=== PATIENT | female | born 1945 | race African-American/Black ===

== ENCOUNTER 2018-09-08 15:59 | Observation (INO) ==
--- NOTE | 2018-09-08 16:34 | ED ---
HPI General Chief Complaint: Altered Mental Status Stated Complaint: AMS Time Seen by Provider: 09/08/18 16:05 Source: EMS and old records reviewed Mode of arrival: EMS Limitations: altered mental status History of Present Illness HPI narrative: 73-year-old female patient from long-term presents to the ER today brought in by EMS because she was found unresponsive, GCS 4 at the long-term. Patient has history of seizures in the past, however no seizure activity was seen today. She slowly recovered to a GCS of 5 while on the ambulance. She did have an episode of small amount of vomiting prior to ambulance arrival. They state that she is breathing on her own normally. Vital signs are stable. She does not have any apparent injuries. Modifying Factors: None Associated Signs & Symptoms: Altered mental status Risk Factors: Elderly, seizure history Related Data Home Medications Medication Instructions Recorded Confirmed acetaminophen 500 mg PO Q6H PRN 09/08/18 09/08/18 aspirin 81 mg PO DAILY 09/08/18 09/08/18 atorvastatin 40 mg PO HS 09/08/18 09/08/18 bisacodyl [Dulcolax (bisacodyl)] 10 mg [place] DAILY PRN 09/08/18 09/08/18 carbamazepine 500 mg PO TID 09/08/18 09/08/18 clonidine HCl 0.1 mg PO BID 09/08/18 09/08/18 cyanocobalamin (vitamin B-12) 2,500 mcg SUBLINGUAL DAILY 09/08/18 09/08/18 [Vitamin B-12] diltiazem HCl 180 mg PO HS 09/08/18 09/08/18 divalproex 500 mg PO EVERY OTHER DAY 09/08/18 09/08/18 donepezil [Aricept] 15 mg PO HS 09/08/18 09/08/18 ferrous sulfate 325 mg PO TID 09/08/18 09/08/18 fluticasone 2 spray INTRANASAL DAILY 09/08/18 09/08/18 folic acid 1 mg PO DAILY 09/08/18 09/08/18 ibuprofen 800 mg PO TID 09/08/18 09/08/18 labetalol 200 mg PO BID 09/08/18 09/08/18 levothyroxine 25 mcg PO DAILY 09/08/18 09/08/18 lorazepam 0.05 mg/kg IM DAILY PRN 09/08/18 09/08/18 magnesium citrate [Citroma] 30 ml PO DAILY PRN 09/08/18 09/08/18 megestrol 400 mg PO DAILY 09/08/18 09/08/18 mirtazapine 7.5 mg PO DAILY 09/08/18 09/08/18 mirtazapine [Remeron] 15 mg PO DAILY 09/08/18 09/08/18 omeprazole 20 mg PO DAILY PRN 09/08/18 09/08/18 phenytoin sodium extended 100 mg PO TID 09/08/18 09/08/18 sennosides-docusate sodium 1 tab PO BID PRN 09/08/18 09/08/18 spironolactone 50 mg PO DAILY 09/08/18 09/08/18 ticagrelor [Brilinta] 90 mg PO BID 09/08/18 09/08/18 valsartan 80 mg PO DAILY 09/08/18 09/08/18 Allergies Allergy/AdvReac Type Severity Reaction Status Date / Time amlodipine [From [facility]] Allergy Rash Verified 09/08/18 16:13 Calcium Channel Blocking Allergy Rash Verified 09/08/18 16:13 Agents-Dih Review of Systems ROS Unobtainable ROS Unobtainable: unobtainable due to mental status PMFSH Medical History Medical History Atherosclerotic heart disease (Acute) Candidiasis (Acute) Chronic kidney disease (Acute) Constipation (Acute) Epilepsy (Acute) GERD (gastroesophageal reflux disease) (Acute) Status epilepticus (Acute) Surgical History Surgical History H/O kidney removal (Acute) Family History Family History Other Family history unknown Social History Social History Substance History: Unable to Obtain Second Hand Smoke Exposure: No Smoking Status: Unknown if ever smoked How Often Do You Have a Drink Containing Alcohol: Unable to Obtain Immunization History Tetanus Immunization: Unable to Assess Exam Narrative Exam Narrative: GENERAL: Well-developed elderly female patient currently in moderate distress, lethargic, disoriented, unable to give me any further history. SKIN: Focused skin assessment warm/dry. HEAD: Atraumatic. Normocephalic. EYES: Pupils, small, equal and round. No scleral icterus. No injection or drainage. ENT: No nasal bleeding or discharge. Mucous membranes pink and moist. NECK: Trachea midline. No JVD. CARDIOVASCULAR: Regular rate and rhythm. No murmur appreciated. RESPIRATORY: No accessory muscle use. Clear to auscultation. Breath sounds equal bilaterally. GASTROINTESTINAL: Abdomen soft, non-tender, nondistended. Hepatic and splenic margins not palpable. MUSCULOSKELETAL: No obvious deformities. No clubbing. No cyanosis. No edema. NEUROLOGICAL: Lethargic. Disoriented and unable to follow commands. PSYCHIATRIC: Unable to assess. Course Initial Documented Vital Signs Temperature 98.1 F 09/08/18 16:01 Pulse Rate 52 L 09/08/18 16:01 Respiratory Rate 16 09/08/18 16:01 Blood Pressure 183/74 H 09/08/18 16:01 Pulse Oximetry 99 09/08/18 16:01 Last Documented Vital Signs Temperature 97.7 F 09/09/18 15:37 Pulse Rate 71 09/09/18 15:37 Respiratory Rate 16 09/09/18 15:37 Blood Pressure 123/69 09/09/18 12:35 Pulse Oximetry 95 09/09/18 15:51 Medical Decision Making MDM Narrative Medical decision making narrative: CT the brain did not show any signs of acute intracranial processes. She was observed for 3 hours in the ER and is still fairly lethargic although more arousable now. At this point, I have discussed the case with Dr. Ibrahim who is the hospitalist on-call for admission for observation. However, it is recommended by her that we observe the patient for an additional 3 hours and if still not out of post ictal state, still disoriented, can be admitted at that time. After period of observation, patient was still poorly responsive and case had been discussed with Dr. Ibrahim for admission. Medical Screen Exam Complete: Yes Emergency Medical Condition: Yes Differential Diagnosis Differential Diagnosis: Seizures/post ictal versus acute intracranial processes versus electrolyte abnormalities Lab Data Result diagrams: 09/09/18 13:28 09/09/18 13:28 Lab Results 09/08/18 09/08/18 09/08/18 Range/Units 16:08 16:20 16:30 WBC 7.1 (4.0-11.0) th/mm3 RBC 2.87 L (4.00-5.30) mil/mm3 Hgb 10.1 L (11.6-15.3) gm/dL Hct 29.1 L (35.0-46.0) % MCV 101.2 H (80.0-100.0) fL MCH 35.1 H (27.0-34.0) pg MCHC 34.7 (32.0-36.0) % RDW 14.6 (11.6-17.2) % Plt Count 221 (150-450) th/mm3 MPV 8.8 (7.0-11.0) fL Neut % (Auto) 75.5 H (16.0-70.0) % Lymph % (Auto) 15.4 (9.0-44.0) % [place] % (Auto) 7.8 (0.0-8.0) % Eos % (Auto) 1.0 (0.0-4.0) % Baso % (Auto) 0.3 (0.0-2.0) % Neut # (Auto) 5.4 (1.8-7.7) th/mm3 Lymph # (Auto) 1.1 (1.0-4.8) th/mm3 [place] # (Auto) 0.6 (0.0-0.9) th/mm3 Eos # (Auto) 0.1 (0.0-0.4) th/mm3 Baso # (Auto) 0.0 (0.0-0.2) th/mm3 WBC Differential . Differential Comment Auto diff final PT (9.8-11.6) sec INR Ratio APTT (23.4-31.7) sec Sodium 139 (136-145) meq/L Potassium 5.0 (3.5-5.1) meq/L Chloride 115 H (98-107) meq/L Carbon Dioxide 16.8 L (21.0-32.0) meq/L Anion Gap 7 (5-15) meq/L BUN 40 H (7-18) mg/dL Creatinine 1.28 H (0.50-1.00) mg/dL Estimated GFR 41 L (>89) mL/min POC Glucose 117 H (68-110) mg/dl Random Glucose 116 H (74-106) mg/dL Calcium 9.4 (8.5-10.1) mg/dL Magnesium 2.1 (1.5-2.5) mg/dL Total Bilirubin 0.3 (0.2-1.0) mg/dL AST 10 L (15-37) U/L ALT 18 (10-53) U/L Alkaline Phosphatase 94 (45-117) U/L Troponin I 0.04 (0.02-0.05) ng/mL Total Protein 7.8 D (6.4-8.2) g/dL Albumin 3.2 L (3.4-5.0) g/dL Urine Color (Yellw/Straw) Urine Clarity (Clear) Urine pH (5.0-8.5) Ur Specific Nixon (1.002-1.035) Urine Protein (Neg-Trace) mg/dL Urine Glucose (UA) (Negative) mg/dL Urine Ketones (Negative) mg/dL Urine Occult Blood (Negative) Urine Nitrate (Negative) Urine Bilirubin (Negative) Urine Urobilinogen (Less than 2) mg/dL Ur Leukocyte Esterase (Negative) Urine RBC (0-3) /hpf Urine WBC (0-5) /hpf Urine Mucus (Occasional) /lpf Micro UA Comment Ur Microscopic Review Urine Culture Comments Phenytoin 1.8 L (10.0-20.0) mcg/mL 09/08/18 09/08/18 09/09/18 Range/Units 16:30 18:07 13:28 WBC 5.4 (4.0-11.0) th/mm3 RBC 2.92 L (4.00-5.30) mil/mm3 Hgb 10.2 L (11.6-15.3) gm/dL Hct 29.7 L (35.0-46.0) % MCV 101.4 H (80.0-100.0) fL MCH 34.7 H (27.0-34.0) pg MCHC 34.3 (32.0-36.0) % RDW 14.7 (11.6-17.2) % Plt Count 205 (150-450) th/mm3 MPV 8.9 (7.0-11.0) fL Neut % (Auto) 70.7 H (16.0-70.0) % Lymph % (Auto) 15.8 (9.0-44.0) % [place] % (Auto) 12.4 H (0.0-8.0) % Eos % (Auto) 0.7 (0.0-4.0) % Baso % (Auto) 0.4 (0.0-2.0) % Neut # (Auto) 3.8 (1.8-7.7) th/mm3 Lymph # (Auto) 0.9 L (1.0-4.8) th/mm3 [place] # (Auto) 0.7 (0.0-0.9) th/mm3 Eos # (Auto) 0.0 (0.0-0.4) th/mm3 Baso # (Auto) 0.0 (0.0-0.2) th/mm3 WBC Differential . Differential Comment Auto diff final PT 10.3 (9.8-11.6) sec INR 1.0 Ratio APTT 21.7 L (23.4-31.7) sec Sodium (136-145) meq/L Potassium (3.5-5.1) meq/L Chloride (98-107) meq/L Carbon Dioxide (21.0-32.0) meq/L Anion Gap (5-15) meq/L BUN (7-18) mg/dL Creatinine (0.50-1.00) mg/dL Estimated GFR (>89) mL/min POC Glucose (68-110) mg/dl Random Glucose (74-106) mg/dL Calcium (8.5-10.1) mg/dL Magnesium (1.5-2.5) mg/dL Total Bilirubin (0.2-1.0) mg/dL AST (15-37) U/L ALT (10-53) U/L Alkaline Phosphatase (45-117) U/L Troponin I (0.02-0.05) ng/mL Total Protein (6.4-8.2) g/dL Albumin (3.4-5.0) g/dL Urine Color Yellow (Yellw/Straw) Urine Clarity Clear (Clear) Urine pH 5.0 (5.0-8.5) Ur Specific Nixon 1.016 (1.002-1.035) Urine Protein Negative (Neg-Trace) mg/dL Urine Glucose (UA) Negative (Negative) mg/dL Urine Ketones Trace H (Negative) mg/dL Urine Occult Blood Negative (Negative) Urine Nitrate Negative (Negative) Urine Bilirubin Negative (Negative) Urine Urobilinogen Less than 2 (Less than 2) mg/dL Ur Leukocyte Esterase Negative (Negative) Urine RBC 2 (0-3) /hpf Urine WBC 1 (0-5) /hpf Urine Mucus Few H (Occasional) /lpf Micro UA Comment Cath-culture not ind Ur Microscopic Review Not Reportable Urine Culture Comments Cath-cult not ind Phenytoin (10.0-20.0) mcg/mL 09/09/18 Range/Units 13:28 WBC (4.0-11.0) th/mm3 RBC (4.00-5.30) mil/mm3 Hgb (11.6-15.3) gm/dL Hct (35.0-46.0) % MCV (80.0-100.0) fL MCH (27.0-34.0) pg MCHC (32.0-36.0) % RDW (11.6-17.2) % Plt Count (150-450) th/mm3 MPV (7.0-11.0) fL Neut % (Auto) (16.0-70.0) % Lymph % (Auto) (9.0-44.0) % [place] % (Auto) (0.0-8.0) % Eos % (Auto) (0.0-4.0) % Baso % (Auto) (0.0-2.0) % Neut # (Auto) (1.8-7.7) th/mm3 Lymph # (Auto) (1.0-4.8) th/mm3 [place] # (Auto) (0.0-0.9) th/mm3 Eos # (Auto) (0.0-0.4) th/mm3 Baso # (Auto) (0.0-0.2) th/mm3 WBC Differential Differential Comment PT (9.8-11.6) sec INR Ratio APTT (23.4-31.7) sec Sodium 139 (136-145) meq/L Potassium 4.1 D (3.5-5.1) meq/L Chloride 113 H (98-107) meq/L Carbon Dioxide 19.8 L (21.0-32.0) meq/L Anion Gap 6 (5-15) meq/L BUN 30 H (7-18) mg/dL Creatinine 1.18 H (0.50-1.00) mg/dL Estimated GFR 55 L (>89) mL/min POC Glucose (68-110) mg/dl Random Glucose 132 H (74-106) mg/dL Calcium 9.7 (8.5-10.1) mg/dL Magnesium (1.5-2.5) mg/dL Total Bilirubin (0.2-1.0) mg/dL AST (15-37) U/L ALT (10-53) U/L Alkaline Phosphatase (45-117) U/L Troponin I (0.02-0.05) ng/mL Total Protein (6.4-8.2) g/dL Albumin (3.4-5.0) g/dL Urine Color (Yellw/Straw) Urine Clarity (Clear) Urine pH (5.0-8.5) Ur Specific Nixon (1.002-1.035) Urine Protein (Neg-Trace) mg/dL Urine Glucose (UA) (Negative) mg/dL Urine Ketones (Negative) mg/dL Urine Occult Blood (Negative) Urine Nitrate (Negative) Urine Bilirubin (Negative) Urine Urobilinogen (Less than 2) mg/dL Ur Leukocyte Esterase (Negative) Urine RBC (0-3) /hpf Urine WBC (0-5) /hpf Urine Mucus (Occasional) /lpf Micro UA Comment Ur Microscopic Review Urine Culture Comments Phenytoin (10.0-20.0) mcg/mL Imaging Data Radiologist's impression: Chest X-Ray 09/08/18 16:13 CONCLUSION: No acute cardiopulmonary disease. There is no evidence of pneumonia. Head CT 09/08/18 16:13 CONCLUSION: 1. Diffuse cerebral atrophy. 2. Moderate to severe periventricular and subcortical white matter small vessel ischemic changes are noted bilaterally. 3. No acute infarct, acute hemorrhage, midline shift or extra-axial fluid collections. . Discharge Plan Discharge Disposition Patient Disposition: ED Admit(ED Internal Use Only) Discharge Condition Condition: Good Discharge Order Discharge Orders: ED Use Only Admit Order (Routine); Ordered 09/08/18 Ordered By: Jose Juan Quezada Discharge Details Anticipated Discharge Date: 09/08/18 Diagnosis: Altered mental status Physicians Team ED Provider: Harshil Pinon Primary Care Provider: Desmond Osman Attending Provider: Nguyen Hoskins Other Providers: [facility],Agency Discharge Interventions Interventions: ED Discharge Assessment Last Done: 09/09/18 01:21 Status ED Status: Left Department Discharge Information Discharge Date/Time: 09/09/18 01:21
[2018-09-08 16:57] LABS: Baso % (Auto) 0.3 % (0.0-2.0); Eos # (Auto) 0.1 th/mm3 (0.0-0.4); Hematocrit 29.1 % (35.0-46.0); Hemoglobin 10.1 gm/dL (11.6-15.3); Lymph # (Auto) 1.1 th/mm3 (1.0-4.8); Lymph % (Auto) 15.4 % (9.0-44.0); Mean Corpuscular HGB Conc 34.7 % (32.0-36.0); Mean Corpuscular Hemoglobin 35.1 pg (27.0-34.0); Mean Corpuscular Volume 101.2 fL (80.0-100.0); Mean Platelet Volume 8.8 fL (7.0-11.0); Mono # (Auto) 0.6 th/mm3 (0.0-0.9); Mono % (Auto) 7.8 % (0.0-8.0); Neut # (Auto) 5.4 th/mm3 (1.8-7.7); Neut % (Auto) 75.5 % (16.0-70.0); Platelet Count 221 th/mm3 (150-450); Red Blood Count 2.87 mil/mm3 (4.00-5.30); Red Cell Distribution Width 14.6 % (11.6-17.2); White Blood Count 7.1 th/mm3 (4.0-11.0)
[2018-09-08] MEDS ORDERED: Sodium Chlor 0.9% Inj 500 ML IV.SIG SCH (17:00)
[2018-09-08 17:02] LABS: Activated Partial Thrombo Time 21.7 sec (23.4-31.7); Prothrombin Time 10.3 sec (9.8-11.6)
--- NOTE | 2018-09-08 17:02 | XR ---
EXAM DATE: 09/08/2018 4:57 PM EST AGE/SEX: 73 years / Female INDICATIONS: Shortness of breath. Evaluate for pneumonia. Patient non-responsive. CLINICAL DATA: This is the patient's initial encounter. Patient reports that signs and symptoms have been present for 1 day and indicates a pain score of Nonresponsive. MEDICAL/SURGICAL HISTORY: Non-responsive. Non-responsive. COMPARISON: No prior exams available for comparison. FINDINGS: A single AP view of the chest demonstrates the lungs to be symmetrically aerated without evidence of mass, infiltrate or effusion. The cardiomediastinal contours are unremarkable. Osseous structures a re intact. CONCLUSION: No acute cardiopulmonary disease. There is no evidence of pneumonia. Electronically signed by: Giovanny Tracy MD Board Certified Radiologist 09/08/2018 5:00 PM EST
--- NOTE | 2018-09-08 17:09 | CT ---
EXAM DATE: 09/08/2018 5:05 PM EST AGE/SEX: 73 years / Female INDICATIONS: Altered mental status. CLINICAL DATA: This is the patient's initial encounter. Patient reports that signs and symptoms have been present for 1 day and indicates a pain score of Nonresponsive. MEDICAL/SURGICAL HISTORY: Chronic renal insufficiency. . nephrectomy RADIATION DOSE: 56.35 CTDI (mGy) COMPARISON: No prior exams available for comparison. TECHNIQUE: CT of the head without contrast. Using automated exposure control and adjustment of the mA and/or kV according to patient size, radiation dose was kept as low as reasonably achievable to ob tain optimal diagnostic quality images. DICOM format image data is available electronically for revi ew and comparison. FINDINGS: Cerebrum: Diffuse cerebral atrophy is noted. Moderate to severe periventricular and subcortical whit e matter small vessel ischemic changes are noted bilaterally. There is no acute infarct, acute hemorr samia, midline shift or extra-axial fluid collections. Posterior Fossa: The cerebellum and brainstem are intact. The 4th ventricle is midline. The cerebe llopontine angle is unremarkable. Extracranial: The visualized portion of the orbits is intact. Skull: The calvaria is intact. No evidence of skull fracture. CONCLUSION: 1. Diffuse cerebral atrophy. 2. Moderate to severe periventricular and subcortical white matter small vessel ischemic changes are noted bilaterally. 3. No acute infarct, acute hemorrhage, midline shift or extra-axial fluid collections. . Electronically signed by: Jaydon Joseph MD Board Certified Radiologist 09/08/2018 5:08 PM EST
[2018-09-08 17:13] LABS: Albumin 3.2 g/dL (3.4-5.0); Anion Gap 7 meq/L (5-15); Aspartate Aminotransferase 10 U/L (15-37); Blood Urea Nitrogen 40 mg/dL (7-18); Calcium 9.4 mg/dL (8.5-10.1); Carbon Dioxide 16.8 meq/L (21.0-32.0); Chloride 115 meq/L (98-107); Glomerular Filtration Rate 41 mL/min (>89); Glucose,Random 116 mg/dL (74-106); Magnesium 2.1 mg/dL (1.5-2.5); Sodium 139 meq/L (136-145)
[2018-09-08 17:14] LABS: Alanine Aminotransferase 18 U/L (10-53)
[2018-09-08 17:18] LABS: Alkaline Phosphatase 94 U/L (45-117); Phenytoin (Dilantin) 1.8 mcg/mL (10.0-20.0); Total Protein 7.8 g/dL (6.4-8.2); Troponin I 0.04 ng/mL (0.02-0.05)
[2018-09-08] MEDS ORDERED: Phenytoin Inj 1,000 MG in Sodium Chlor 0.9% Inj 100 ML IV.SIG ONE (17:34)
[2018-09-08] MEDS ORDERED: Sodium Chloride 0.9% 2 ML Flush PRN IV.FLUSH (17:47)
[2018-09-08 18:18] LABS: Bilirubin,Urine Negative (Negative); Clarity,Urine Clear (Clear); Color,Urine Yellow (Yellw/Straw); Glucose,Urine (UA) Negative (Negative); Leukocyte Esterase,Urine Negative (Negative); Mucus,Urine Few /lpf (Occasional); Nitrite,Urine Negative (Negative); Specific Gravity,Urine 1.016 (1.002-1.035)
[2018-09-08] MEDS ORDERED: Sodium Chloride 0.9% 2 ML Flush BID IV.FLUSH SCH (21:00)
[2018-09-08] MEDS ORDERED: Acetaminophen 325 MG Tablet PO PRN (23:45)
[2018-09-08] MEDS ORDERED: Bisacodyl 10 MG Supp RECTAL PRN (23:45)
[2018-09-09] MEDS ORDERED: Pantoprazole Sodium 20 MG DR Tablet PO PRN (00:02)
--- NOTE | 2018-09-09 00:42 | P.HP ---
History of Present Illness Service: [facility] Primary Care Physician: Desmond Osman History of Present Illness: 73-year-old female with a past medical history of seizure disorder, GERD, coronary artery disease, chronic kidney disease status post nephrectomy for renal carcinoma, hypothyroidism, hyperparathyroidism, depression, hyperlipidemia and hypertension was brought to the emergency department for evaluation of altered mental status. The patient was found unresponsive in her long term and EMS was called. At their arrival she had a GCS of 4. The patient has a history of seizures however no seizure activity was observed in the long term. At the time of our interview, the patient opens her eyes to voice however is not able to answer any of my questions. Per long term documentation her baseline is confused with an element of dementia but she is normally verbal. Review of Systems unobtainable due to mental status PMFSH - History History Provided By: Medical Record, Otolaryngology Rep / EMT - Medical History Medical History: Medical History (Last Reviewed 09/09/18 @ 00:28 by Yasmeen Ibrahim MD) Anemia Atherosclerotic heart disease CAD (coronary artery disease) COPD (chronic obstructive pulmonary disease) Candidiasis Chronic kidney disease Constipation Depression Epilepsy GERD (gastroesophageal reflux disease) Heart failure Hyperlipidemia Hyperparathyroidism Hypertension Hypothyroidism Status epilepticus - Surgical History Surgical History: Surgical History (Last Reviewed 09/09/18 @ 00:28 by Yasmeen Ibrahim MD) H/O kidney removal - Family History Family History: Family History (Last Updated 09/09/18 @ 00:28 by Yasmeen Ibrahim MD) Other Family history unknown - Tobacco History Smoking Status: Unknown if ever smoked - Alcohol History How Often Do You Have a Drink Containing Alcohol: Unable to Obtain - Substance Use History Substance History: Unable to Obtain - Immunization History Tetanus Immunization: Unable to Assess Medications and Allergies Active Medications: Active Medications Acetaminophen (Tylenol) 650 mg PO Q4H PRN PRN Reason: Temp > 100.4 Al Hydroxide/Mg Hydroxide (Milk Of Magnesia Liq) 30 ml PO Q12H PRN PRN Reason: Mild Constipation Aspirin (Aspirin Chew) 81 mg PO DAILY PAULA Atorvastatin Calcium (Lipitor) 40 mg PO HS PAULA Bisacodyl (Dulcolax Supp) 10 mg RECTAL DAILY PRN PRN Reason: SEVERE CONSITIPATION Carbamazepine (Tegretol) 500 mg PO TID PAULA Clonidine HCl (Catapres) 0.1 mg PO BID PAULA Diltiazem HCl (Cardizem Cd 24hr) 180 mg PO HS [facility] Divalproex Sodium (Depakote Dr) 500 mg PO EVERY OTHER DAY PAULA Donepezil HCl (Aricept) 15 mg PO HS [facility] Ferrous Sulfate (Ferosul) 325 mg PO TID PAULA Folic Acid (Folic Acid) 1 mg PO DAILY [facility] Sodium Chloride (Ns Inj) 1,000 mls @ 75 mls/hr IV.CONT .[id number] [facility] Labetalol HCl (Trandate) 200 mg PO BID [facility] Lactulose (Lactulose Liq) 30 ml PO DAILY PRN PRN Reason: SEVERE CONSITIPATION Levothyroxine Sodium (Synthroid) 25 mcg PO DAILY@0600 PA[facility] Ondansetron HCl (Zofran Inj) 4 mg IV.PUSH Q6H PRN PRN Reason: NAUSEA OR VOMITING Pantoprazole Sodium (Protonix) 20 mg PO DAILY PRN PRN Reason: Heartburn Phenytoin Sodium (Dilantin) 100 mg PO TID [facility] Sennosides (Senokot) 17.2 mg PO Q12H PRN PRN Reason: Moderate Constipation Sodium Chloride (Ns Flush) 2 ml IV.FLUSH BID PAULA Sodium Chloride (Ns Flush) 2 ml IV.FLUSH PRN PRN PRN Reason: FLUSH AFTER USING IV ACCESS Spironolactone (Aldactone) 50 mg PO DAILY PA[facility] Valsartan (Diovan) 80 mg PO DAILY [facility] Allergies Allergy/AdvReac Type Severity Reaction Status Date / Time amlodipine [From [facility]] Allergy Rash Verified 09/08/18 16:13 Calcium Channel Blocking Allergy Rash Verified 09/08/18 16:13 Agents-Di Home Medications Medication Instructions Recorded Confirmed Type acetaminophen 500 mg PO Q6H PRN 09/08/18 09/08/18 History aspirin 81 mg PO DAILY 09/08/18 09/08/18 History atorvastatin 40 mg PO HS 09/08/18 09/08/18 History bisacodyl [Dulcolax (bisacodyl)] 10 mg [place] DAILY PRN 09/08/18 09/08/18 History carbamazepine 500 mg PO TID 09/08/18 09/08/18 History clonidine HCl 0.1 mg PO BID 09/08/18 09/08/18 History cyanocobalamin (vitamin B-12) 2,500 mcg SUBLINGUAL DAILY 09/08/18 09/08/18 History [Vitamin B-12] diltiazem HCl 180 mg PO HS 09/08/18 09/08/18 History divalproex 500 mg PO EVERY OTHER DAY 09/08/18 09/08/18 History donepezil [Aricept] 15 mg PO HS 09/08/18 09/08/18 History ferrous sulfate 325 mg PO TID 09/08/18 09/08/18 History fluticasone 2 spray INTRANASAL DAILY 09/08/18 09/08/18 History folic acid 1 mg PO DAILY 09/08/18 09/08/18 History ibuprofen 800 mg PO TID 09/08/18 09/08/18 History labetalol 200 mg PO BID 09/08/18 09/08/18 History levothyroxine 25 mcg PO DAILY 09/08/18 09/08/18 History lorazepam 0.05 mg/kg IM DAILY PRN 09/08/18 09/08/18 History magnesium citrate [Citroma] 30 ml PO DAILY PRN 09/08/18 09/08/18 History megestrol 400 mg PO DAILY 09/08/18 09/08/18 History mirtazapine 7.5 mg PO DAILY 09/08/18 09/08/18 History mirtazapine [Remeron] 15 mg PO DAILY 09/08/18 09/08/18 History omeprazole 20 mg PO DAILY PRN 09/08/18 09/08/18 History phenytoin sodium extended 100 mg PO TID 09/08/18 09/08/18 History sennosides-docusate sodium 1 tab PO BID PRN 09/08/18 09/08/18 History spironolactone 50 mg PO DAILY 09/08/18 09/08/18 History ticagrelor [Brilinta] 90 mg PO BID 09/08/18 09/08/18 History valsartan 80 mg PO DAILY 09/08/18 09/08/18 History Exam Vital signs: Vital Signs 09/08/18 16:01 09/08/18 16:32 09/08/18 17:32 Temperature 98.1 F Pulse Rate 52 L 50 L 60 Respiratory Rate 16 18 16 Blood Pressure 183/74 H 180/79 H 185/83 H Pulse Oximetry 99 100 98 09/08/18 18:08 09/08/18 19:10 09/08/18 22:42 Temperature Pulse Rate 68 55 L Respiratory Rate 18 16 Blood Pressure 198/93 H 129/62 Pulse Oximetry 100 97 100 09/09/18 00:04 Temperature Pulse Rate 65 Respiratory Rate 18 Blood Pressure 164/73 H Pulse Oximetry Intake & Output 09/08/18 09/08/18 09/09/18 06:59 18:59 06:59 Intake Total 620 / 620 Balance 620 / 620 Weight 58.967 kg Intake: IV 620 / 620 Dilantin Inj 1,000 MG In NS Inj 120 / 120 100 ML @ 144 mls/hr IV.SIG ONCE ONE Rx#:[id number] NS Inj 500 ML @ 1000 mls/hr IV. 500 / 500 SIG BOLUS PAULA Rx#:[id number] Narrative: Gen.: No acute distress Head: Normocephalic. Atraumatic. EENT: Pupils equal round and reactive to light. Nose without drainage. Airway intact. Throat without injection. Cardiovascular: Regular rate and rhythm. No murmurs, rubs or gallops. Respiratory: Lungs clear to auscultation bilaterally. No wheezes or rhonchi. Abdomen: Soft, nontender, nondistended. No peritoneal signs. Musculoskeletal: No gross deformities. No edema. Skin: No obvious rashes or erythema. Neuro: Sensory and motor grossly intact. Cranial nerves II through XII grossly intact. Patient opens her eyes to voice however does not respond to questions. Does not follow commands. Results - Labs CBC & Chem 7: 09/08/18 16:30 09/08/18 16:20 Labs: Laboratory Results - last 24 hr 09/08/18 09/08/18 09/08/18 16:08 16:20 16:30 WBC 7.1 RBC 2.87 L Hgb 10.1 L Hct 29.1 L MCV 101.2 H MCH 35.1 H MCHC 34.7 RDW 14.6 Plt Count 221 MPV 8.8 Neut % (Auto) 75.5 H Lymph % (Auto) 15.4 Harvey % (Auto) 7.8 Eos % (Auto) 1.0 Baso % (Auto) 0.3 Neut # (Auto) 5.4 Lymph # (Auto) 1.1 Harvey # (Auto) 0.6 Eos # (Auto) 0.1 Baso # (Auto) 0.0 WBC Differential . Differential Comment Auto diff final PT INR APTT Sodium 139 Potassium 5.0 Chloride 115 H Carbon Dioxide 16.8 L Anion Gap 7 BUN 40 H Creatinine 1.28 H Estimated GFR 41 L POC Glucose 117 H Random Glucose 116 H Calcium 9.4 Magnesium 2.1 Total Bilirubin 0.3 AST 10 L ALT 18 Alkaline Phosphatase 94 Troponin I 0.04 Total Protein 7.8 D Albumin 3.2 L Urine Color Urine Clarity Urine pH Ur Specific [place] Urine Protein Urine Glucose (UA) Urine Ketones Urine Occult Blood Urine Nitrate Urine Bilirubin Urine Urobilinogen Ur Leukocyte Esterase Urine RBC Urine WBC Urine Mucus Micro UA Comment Ur Microscopic Review Urine Culture Comments Phenytoin 1.8 L 09/08/18 09/08/18 16:30 18:07 WBC RBC Hgb Hct MCV MCH MCHC RDW Plt Count MPV Neut % (Auto) Lymph % (Auto) Harvey % (Auto) Eos % (Auto) Baso % (Auto) Neut # (Auto) Lymph # (Auto) Harvey # (Auto) Eos # (Auto) Baso # (Auto) WBC Differential Differential Comment PT 10.3 INR 1.0 APTT 21.7 L Sodium Potassium Chloride Carbon Dioxide Anion Gap BUN Creatinine Estimated GFR POC Glucose Random Glucose Calcium Magnesium Total Bilirubin AST ALT Alkaline Phosphatase Troponin I Total Protein Albumin Urine Color Yellow Urine Clarity Clear Urine pH 5.0 Ur Specific [place] 1.016 Urine Protein Negative Urine Glucose (UA) Negative Urine Ketones Trace H Urine Occult Blood Negative Urine Nitrate Negative Urine Bilirubin Negative Urine Urobilinogen Less than 2 Ur Leukocyte Esterase Negative Urine RBC 2 Urine WBC 1 Urine Mucus Few H Micro UA Comment Cath-culture not ind Ur Microscopic Review Not Reportable Urine Culture Comments Cath-cult not ind Phenytoin - Imaging Impressions Chest X-Ray 09/08/18 16:13 CONCLUSION: No acute cardiopulmonary disease. There is no evidence of pneumonia. Head CT 09/08/18 16:13 CONCLUSION: 1. Diffuse cerebral atrophy. 2. Moderate to severe periventricular and subcortical white matter small vessel ischemic changes are noted bilaterally. 3. No acute infarct, acute hemorrhage, midline shift or extra-axial fluid collections. . Caprini VTE Risk Assessment Caprini VTE Risk Assessment: Moderate/High Risk (score >= 2) Caprini Risk Assessment Model: Point Value = 1 Point Value = 2 Point Value = 3 Point Value = 5 Age 41-60 Minor surgery BMI > 25 kg/m2 Swollen legs Varicose veins or History of unexplained or recurrent spontaneous Oral contraceptives or hormone replacement Sepsis (< 1 month) Serious lung disease, including pneumonia (< 1 month) Abnormal pulmonary function Acute myocardial infarction Congestive heart failure (< 1 month) History of inflammatory bowel disease Medical patient at bed rest Age 61-74 Arthroscopic surgery Major open surgery (> 45 min) Laparoscopic surgery (> 45 min) Malignancy Confined to bed (> 72 hours) Immobilizing plaster cast Central venous access Age >= 75 History of VTE Family history of VTE Factor V Leiden Prothrombin [id number] Lupus anticoagulant Anticardiolipin antibodies Elevated serum homocysteine Heparin-induced thrombocytopenia Other congenital or acquired thrombophilia Stroke (< 1 month) Elective arthroplasty Hip, pelvis, or leg fracture Acute spinal cord injury (< 1 month) Prophylaxis Regimen: Total Risk Factor Score Risk Level Prophylaxis Regimen 0-1 Low Early ambulation 2 Moderate Order ONE of the following: *Sequential Compression Device (SCD) *Heparin 5000 units SQ BID 3-4 Higher Order ONE of the following medications: *Heparin 5000 units SQ TID *Enoxaparin/Lovenox 40 mg SQ daily (WT < 150 kg, CrCl > 30 mL/min) *Enoxaparin/Lovenox 30 mg SQ daily (WT < 150 kg, CrCl > 10-29 mL/min) *Enoxaparin/Lovenox 30 mg SQ BID (WT < 150 kg, CrCl > 30 mL/min) AND/OR *Sequential Compression Device (SCD) 5 or more Highest Order ONE of the following medications: *Heparin 5000 units SQ TID (Preferred with Epidurals) *Enoxaparin/Lovenox 40 mg SQ daily (WT < 150 kg, CrCl > 30 mL/min) *Enoxaparin/Lovenox 30 mg SQ daily (WT < 150 kg, CrCl > 10-29 mL/min) *Enoxaparin/Lovenox 30 mg SQ BID (WT < 150 kg, CrCl > 30 mL/min) AND *Sequential Compression Device (SCD) Assessment and Plan - Plan Assessment/plan: 1. Altered mental status/seizure disorder Patient may have had an unwitnessed seizure, possibly post ictal at this time Head CT negative for acute process Dilantin level subtherapeutic at 1.8 Loaded with Dilantin in the emergency department Every 4 hours neuro checks Continue home antiepileptics Monitor 2. Coronary artery disease/hypertension/hyperlipidemia Continue home Brilinta Continue home statin Continue antihypertensives 3. Chronic kidney disease Creatinine 1.28, baseline Monitor renal function 4. Hypothyroidism Continue home Synthroid FEN Regular diet Electrolytes: Monitor and replete as needed Heparin NS at 75 cc/hr
[2018-09-09] MEDS: Sod Chloride 0.9% Inj 1,000 ML IV.CONT SCH ×2 (01:03→13:05)
[2018-09-09] MEDS ORDERED: Divalproex 500 MG DR Tablet PO SCH (09:00)
[2018-09-09] MEDS: Ferrous Sulfate 325 MG Tablet PO SCH ×3 (10:41→18:12)
[2018-09-09] MEDS: Labetalol 200 MG Tablet PO SCH ×2 (10:42→21:07)
[2018-09-09] MEDS: Folic Acid 1 MG Tablet PO SCH (10:42)
[2018-09-09] MEDS: Spironolactone 50 MG Tablet PO SCH (10:42)
[2018-09-09] MEDS: Phenytoin Sodium 100 MG Capsule PO SCH ×3 (10:43→18:12)
[2018-09-09] MEDS: carBAMazepine 200 MG Tablet PO SCH ×3 (10:43→18:12)
[2018-09-09] MEDS: Heparin - SQ 10,000 UNITS/ML Vial SQ SCH ×2 (10:44→21:28)
[2018-09-09 13:58] LABS: Baso % (Auto) 0.4 % (0.0-2.0); Eos % (Auto) 0.7 % (0.0-4.0); Hematocrit 29.7 % (35.0-46.0); Hemoglobin 10.2 gm/dL (11.6-15.3); Lymph # (Auto) 0.9 th/mm3 (1.0-4.8); Lymph % (Auto) 15.8 % (9.0-44.0); Mean Corpuscular HGB Conc 34.3 % (32.0-36.0); Mean Corpuscular Hemoglobin 34.7 pg (27.0-34.0); Mean Corpuscular Volume 101.4 fL (80.0-100.0); Mean Platelet Volume 8.9 fL (7.0-11.0); Mono # (Auto) 0.7 th/mm3 (0.0-0.9); Mono % (Auto) 12.4 % (0.0-8.0); Neut # (Auto) 3.8 th/mm3 (1.8-7.7); Neut % (Auto) 70.7 % (16.0-70.0); Platelet Count 205 th/mm3 (150-450); Red Blood Count 2.92 mil/mm3 (4.00-5.30); Red Cell Distribution Width 14.7 % (11.6-17.2); White Blood Count 5.4 th/mm3 (4.0-11.0)
[2018-09-09 14:18] LABS: Calcium 9.7 mg/dL (8.5-10.1); Carbon Dioxide 19.8 meq/L (21.0-32.0); Potassium 4.1 meq/L (3.5-5.1)
--- NOTE | 2018-09-09 15:21 | P.PNIM ---
Subjective Interval history: Follow up altered mental status, probable seizure Patient seen and examined while resting in bed. She is awake, alert and oriented x 3. She denies any upper or lower extremity weakness. No facial droop. No speech changes. Patient appears to be back at her baseline. Physical Exam Vital signs: Last Vital Signs Temp 98.2 F 09/09/18 12:35 Pulse 73 09/09/18 12:35 Resp 17 09/09/18 12:35 BP 123/69 09/09/18 12:35 Pulse Ox 94 L 09/09/18 12:35 Intake & Output 09/07/18 09/08/18 09/09/18 09/10/18 06:59 06:59 06:59 06:59 Intake Total 620 / 620 118 / 118 Balance 620 / 620 118 / 118 Weight 58.967 kg Narrative: Gen.: No acute distress, thin, frail Head: Normocephalic. Atraumatic. EENT: Pupils equal round and reactive to light. Nose without drainage. Airway intact. Cardiovascular: Regular rate and rhythm. No murmurs, rubs or gallops. Respiratory: Lungs clear to auscultation bilaterally. No wheezes or rhonchi. Abdomen: Soft, nontender, nondistended. No peritoneal signs. Musculoskeletal: No gross deformities. No edema. Skin: No obvious rashes or erythema. Neuro: Sensory and motor grossly intact. Cranial nerves II through XII grossly intact. Urinary Catheter Management Straight: Cath placed during this visit: yes, but has since been removed by the nurse Insertion date: 09/08/18 Insertion time: 18:08 Removal date: 09/08/18 Removal time: 18:08 Results Labs CBC & Chem 7: 09/09/18 13:28 09/09/18 13:28 Imaging Imaging: Impressions Chest X-Ray 09/08/18 16:13 CONCLUSION: No acute cardiopulmonary disease. There is no evidence of pneumonia. Head CT 09/08/18 16:13 CONCLUSION: 1. Diffuse cerebral atrophy. 2. Moderate to severe periventricular and subcortical white matter small vessel ischemic changes are noted bilaterally. 3. No acute infarct, acute hemorrhage, midline shift or extra-axial fluid collections. . Assessment and Plan Plan 73-year-old female with a past medical history of seizure disorder, GERD, coronary artery disease, chronic kidney disease status post nephrectomy for renal carcinoma, hypothyroidism, hyperparathyroidism, depression, hyperlipidemia and hypertension was brought to the emergency department for evaluation of altered mental status. Patient was found unresponsive at her [facility] and EMS was called Altered mental status, likely secondary to seizure disorder -probable unwitnessed seizure -CT head negative for acute process -Dilantin level subtherapeutic at 1.8, repeat in am -loaded with Dilantin in the emergency department -continue neuro checks Q4hrs -Continue home antiepileptics Coronary artery disease/hypertension/hyperlipidemia -Continue home Brilinta -Continue home statin -Continue antihypertensives Acute kidney injury supreimposed on chronic kidney disease -Creatinine 1.28 -> 1.18 today and improved -Monitor renal function Hypothyroidism -Continue home Synthroid MDM: self Code: Full GI ppx: PO intake DVT ppx: Heparin SQ Discussed Condition With: RN, patient Progress Note: Quality VTE Deep Vein Thrombosis/Pulmonary Embolism Present on Admission: No
[2018-09-09 15:38] VITALS: RESP 16
--- NOTE | 2018-09-09 18:14 | ECG ---
Date Performed: 09/08/2018 Time Performed: 16:12:17 PTAGE: 73 years EKG: SINUS BRADYCARDIA POOR INITIAL ANTERIOR FORCES V1 AND V2, WHICH MAY BE NORMAL VARIANT AXIS HORIZONTAL PROBABLE LVH ST-T CHANGES NONSPECIFIC ABNORMAL ECG NO PREVIOUS TRACING DOCTOR: Spike Irby Interpretating Date/Time 09/09/2018 18:13:04
[2018-09-09] MEDS ORDERED: dilTIAZem CD 180 MG Capsule PO SCH (21:00)
[2018-09-10] MEDS: Sod Chloride 0.9% Inj 1,000 ML IV.CONT SCH ×2 (05:18→18:42)
[2018-09-10 07:40] VITALS: TEMP 98.7; O2SAT 98
--- NOTE | 2018-09-10 08:06 | P.PN ---
Subjective Interval history: Follow up for AMS, suspected seizure. The patient is seen with RN at bedside. The patient has no specific medical complaints, denies any fever/chills, headache, lightheadedness, dizziness, chest pain, shortness of breath, or abdominal complaints. She is looking forward to discharge. Physical Exam Vital signs: Vital Signs 09/09/18 08:35 09/09/18 11:05 09/09/18 12:35 Temperature 98.5 F 98.2 F Pulse Rate 75 73 Respiratory Rate 18 17 Blood Pressure 169/78 H 123/69 Pulse Oximetry 94 L 95 94 L 09/09/18 15:37 09/09/18 15:51 09/09/18 20:00 Temperature 97.7 F 98.1 F Pulse Rate 71 74 Respiratory Rate 16 16 Blood Pressure 163/70 H Pulse Oximetry 100 95 98 09/10/18 00:00 09/10/18 04:00 09/10/18 07:37 Temperature 97.9 F 98.4 F 98.7 F Pulse Rate 71 71 70 Respiratory Rate 16 16 16 Blood Pressure 123/59 L 165/73 H 178/67 H Pulse Oximetry 95 92 L 98 Intake & Output 09/09/18 09/10/18 09/10/18 18:59 06:59 18:59 Intake Total 1118 / 1118 1240 / 1240 Balance 1118 / 1118 1240 / 1240 Intake: IV 1000 / 1000 1000 / 1000 NS Inj 1,000 ML @ 75 mls/hr IV. 1000 / 1000 1000 / 1000 CONT .[id number] PAULA Rx#:[id number] Oral 118 / 118 240 / 240 Other: # Voids 3 # Bowel Movements 0 Narrative: GENERAL: Pleasant thin elderly female patient in NAD. SKIN: Warm and dry. No rash. HEENT: Normocephalic. Atraumatic. Pupils equal and round. Mucous membranes pink and moist. CARDIOVASCULAR: Regular rate and rhythm. No murmur appreciated. RESPIRATORY: No accessory muscle use. Clear to auscultation. Breath sounds equal bilaterally. GASTROINTESTINAL: Abdomen soft, non-tender, nondistended. Normoactive bowel sounds x4. MUSCULOSKELETAL: No obvious deformities. Extremities without clubbing, cyanosis , or edema. NEUROLOGICAL: Awake and alert. No obvious cranial nerve deficits. Moving all extremities spontaneously. Normal speech. - Urinary Catheter Management Straight Cath placed during this visit: yes, but has since been removed by the nurse Reason for continuing: Not indwelling catheter Insertion date: 09/08/18 Insertion time: 18:08 Removal date: 09/08/18 Removal time: 18:08 Results - Labs CBC & Chem 7: 09/09/18 13:28 09/10/18 08:16 Laboratory Results - last 24 hr 09/09/18 09/09/18 13:28 13:28 WBC 5.4 RBC 2.92 L Hgb 10.2 L Hct 29.7 L MCV 101.4 H MCH 34.7 H MCHC 34.3 RDW 14.7 Plt Count 205 MPV 8.9 Neut % (Auto) 70.7 H Lymph % (Auto) 15.8 Jones % (Auto) 12.4 H Eos % (Auto) 0.7 Baso % (Auto) 0.4 Neut # (Auto) 3.8 Lymph # (Auto) 0.9 L Jones # (Auto) 0.7 Eos # (Auto) 0.0 Baso # (Auto) 0.0 WBC Differential . Differential Comment Auto diff final Sodium 139 Potassium 4.1 D Chloride 113 H Carbon Dioxide 19.8 L Anion Gap 6 BUN 30 H Creatinine 1.18 H Estimated GFR 55 L Random Glucose 132 H Calcium 9.7 - Imaging Chest X-Ray 09/08/18 16:13 CONCLUSION: No acute cardiopulmonary disease. There is no evidence of pneumonia. Head CT 09/08/18 16:13 CONCLUSION: 1. Diffuse cerebral atrophy. 2. Moderate to severe periventricular and subcortical white matter small vessel ischemic changes are noted bilaterally. 3. No acute infarct, acute hemorrhage, midline shift or extra-axial fluid collections. . Assessment and Plan - Plan 73-year-old female with a past medical history of seizure disorder, GERD, CAD, HTN, HLD, CKD, s/p nephrectomy for renal carcinoma, hypothyroidism, hyperparathyroidism, depression, was brought to the emergency department for evaluation of altered mental status. Patient was found unresponsive at her [facility] and EMS was called Altered mental status/Seizure: suspect secondary to seizure disorder with probable unwitnessed seizure -CT head negative for acute process -Dilantin level subtherapeutic at 1.8, s/p loading with Dilantin in the ED -Seizure precautions, neuro checks -Continue home dilantin 100mg tid -Repeat level repeat in am -loaded with Dilantin 10.1, within therapeutic range -no further seizure activity and patient return to baseline -recheck dilantin level in 2-3 days as outpatient Coronary artery disease/hypertension/hyperlipidemia -Continue home Brilinta -Continue home statin -Continue antihypertensives Acute kidney injury supreimposed on chronic kidney disease -Creatinine 1.28 -> 1.18, improved -Monitor renal function, avoid nephrotoxins Hypothyroidism -Continue home Synthroid DVT ppx: Heparin SQ Discharge Planning: Discharge patient to SNF Condition on discharge: Stable Heart Healthy Diet as tolerated Ad Eli activity, no driving, seizure precautions Rx written: no new meds Follow-up with primary care physician and neurology Check dilantin level in 2-3 days as outpatient
[2018-09-10] MEDS: Phenytoin Sodium 100 MG Capsule PO SCH ×3 (08:50→17:51)
[2018-09-10] MEDS: Ferrous Sulfate 325 MG Tablet PO SCH ×3 (08:51→17:51)
[2018-09-10] MEDS: carBAMazepine 200 MG Tablet PO SCH ×3 (08:51→17:53)
[2018-09-10] MEDS: Folic Acid 1 MG Tablet PO SCH (08:55)
[2018-09-10] MEDS: Labetalol 200 MG Tablet PO SCH (08:55)
[2018-09-10] MEDS: Heparin - SQ 10,000 UNITS/ML Vial SQ SCH (08:59)
[2018-09-10] MEDS: Spironolactone 50 MG Tablet PO SCH (09:07)
[2018-09-10 10:28] LABS: Carbon Dioxide 18.3 meq/L (21.0-32.0); Potassium 4.1 meq/L (3.5-5.1)
[2018-09-10 17:20] VITALS: PULSE 74
[2018-09-10 18:45] VITALS: BP 139/80
== END 2018-09-10 19:00 ==
LOC: NEPC 15:59 → NEDA 15:59 → NEPHCDU 09-09 00:39
PROVIDERS: ADMIT Internal Medicine; ATTEND Internal Medicine